=== PATIENT | female | born 1935 | race Caucasian/White ===

== ENCOUNTER 2017-06-18 09:49 | Day surgery (SDC) | payer MEDICARE, OTHER ==
[2017-06-18] VITALS (8 sets, daily range): BP systolic 109–138; BP diastolic 63–70
[~2017-06-18] VITALS: Ht 154.9 cm; Wt 63.5 kg
--- NOTE | 2017-06-18 07:21 | Pre-Procedure Note/Attestation ---
Pre-Procedure Note/Attestation Complete Prior to Procedure Planned Procedure: right - removal of cataract and placement of intraocular lens, right eye Procedure Narrative: Removal of cataract and placement of intraocular lens, right eye Indications for Procedure Pre-Operative Diagnosis: Cataract, nuclear, right eye Attestation I attest that I discussed the nature of the procedure; its benefits; risks and complications; and alternatives (and the risks and benefits of such alternatives ), prior to the procedure, with the patient (or the patient's legal dermatology sales representative). I attest that, if there was a reasonable possibility of needing a blood transfusion, the patient (or the patient's legal dermatology sales representative) was given the [place] Department of Health Services standardized written summary, pursuant to the José Miguel Sara Blood Safety Act ([place] Health and Safety Code # 1645, as amended). I attest that I re-evaluated the patient just prior to the surgery and that there has been no change in the patient's H&P, except as documented below: Praful Saucedo MD Jun 18, 2017 07:21
[2017-06-18] MEDS ORDERED: Akten 3.5% 1ml Btl ONE (10:01)
[2017-06-18] MEDS ORDERED: Cyclopentolate 1% Opth Sol ONE (10:01)
[2017-06-18] MEDS ORDERED: Phenylephrine 10% Opth Soln 5ml ONE (10:02)
[2017-06-18] MEDS ORDERED: Gatifloxacin Opth Solution 0.5% ONE (10:02)
[2017-06-18] MEDS ORDERED: Flurbiprofen 0.03% Opth Sol 2.5ml ONE (10:02)
[2017-06-18] MEDS: Phenylephrine 10% Opth Soln 5ml RIGHT EYE SCH ×3 (10:21→10:41)
[2017-06-18] MEDS: Flurbiprofen 0.03% Opth Sol 2.5ml RIGHT EYE SCH ×3 (10:21→10:42)
[2017-06-18] MEDS: Cyclopentolate 1% Opth Sol RIGHT EYE SCH ×3 (10:21→10:41)
[2017-06-18] MEDS: Akten 3.5% 1ml Btl RIGHT EYE SCH ×3 (10:21→10:42)
[2017-06-18] MEDS: Gatifloxacin Opth Solution 0.5% RIGHT EYE SCH ×3 (10:22→10:42)
[2017-06-18] MEDS ORDERED: CO Q-1030 MG PO (10:53)
[2017-06-18] MEDS ORDERED: OMEGA 3 1,0001 EACH PO (10:53)
[2017-06-18] MEDS ORDERED: VITAMIN D400 INTLU ORAL (10:53)
[2017-06-18] MEDS ORDERED: MULTIVITAMINS1 EAC2 ORAL (10:53)
[2017-06-18] MEDS ORDERED: CALCIUM CITRAT250 M1 PO (10:53)
[2017-06-18] MEDS ORDERED: Lidocaine 1% MPF 10mg/ml 5ml ONE (11:27)
[2017-06-18] MEDS ORDERED: BSS 500ml btl ONE (11:27)
[2017-06-18] MEDS ORDERED: Pred Forte 1% Opth Susp 1ml ONE (11:28)
[2017-06-18] MEDS ORDERED: Timolol 0.5% Op Soln 2.5ml ONE (11:28)
[2017-06-18] MEDS ORDERED: Dexamethasone 4mg/ml vial ONE (11:28)
[2017-06-18] MEDS ORDERED: Maxitrol Opth Oint 3.5gm ONE (11:28)
[2017-06-18] MEDS ORDERED: Tetracaine 0.5% Opth Soln ONE (11:28)
[2017-06-18] MEDS ORDERED: Lidocaine 2% MPF 5ml Vial INJ ONE (11:29)
[2017-06-18] MEDS ORDERED: Povidone-Iodine 5% opth solution ONE (11:29)
[2017-06-18] MEDS ORDERED: EPINEPHrine 1mg/1ml Amp ONE (11:29)
[2017-06-18] MEDS ORDERED: Bupivacaine 0.75% 30ml vial INJ ONE (11:30)
[2017-06-18] MEDS ORDERED: Acetylcholine Injection (OR) ONE (11:30)
[2017-06-18] MEDS ORDERED: Sodium Hyaluronate 10 mg/ml 0.85ml ONE (11:30)
[2017-06-18] MEDS ORDERED: BSS 15ml BTL ONE ×2 (11:30→12:35)
[2017-06-18] MEDS ORDERED: NS Irrig 1000ml ONE (12:45)
[2017-06-18] MEDS ORDERED: LR 1000ml ONE (12:45)
[2017-06-18] MEDS ORDERED: Midazolam 2mg/2ml Inj ONE (12:45)
[2017-06-18] MEDS ORDERED: fentaNYL 100 mcg/2 mL IV ONE (12:45)
[2017-06-18] MEDS ORDERED: Sterile Water Irrig 1000ml IRRIG ONE (12:45)
--- NOTE | 2017-06-18 13:15 | Anethesia Preoperative Eval ---
Anesthesia Pre-op PMH/ROS General Date of Evaluation: Jun 18, 2017 Time of Evaluation: 13:13 Anesthesiologist: sarina ASA Score: ASA 2 Mallampati Score Class I : Soft palate, uvula, fauces, pillars visible Class II: Soft palate, uvula, fauces visible Class III: Soft palate, base of uvula visible Class IV: Only hard plate visible Mallampati Classification: Class II Surgeon: tim Diagnosis: cataract Surgical Procedure: cataract extraction with IOL Anesthesia History: none Family History: no anesthesia problems Allergies: Coded Allergies: No Known Allergies (Unverified , 06/18/17) Medications: see eMAR Past Medical History Cardiovascular: Reports: other - mitral regur Pulmonary: Denies: COPD, MARY KATE, asthma, other Gastrointestinal/Genitourinary: Denies: CRI, ESRD, GERD, other Neurologic/Psychiatric: Denies: CVA, TIA, dementia, depression/anxiety, other Endocrine: Denies: DM, hypothyroidism, other, steroids HEENT: Reports: cataract (R) Hematology/Immune: Denies: DVT, anemia, bleeding disorder, other Musculoskeletal/Integumentary: Denies: DDD, DJD, OA, RA, edema, other Anesthesia Pre-op Phys. Exam Physician Exam Last Vital Signs Date Time Temp Pulse Resp B/P Pulse Ox O2 Delivery O2 Flow Rate FiO2 06/18/17 10:44 97.6 59 20 138/70 100 Room Air Constitutional: NAD Neurologic: CN 2-12 intact Cardiovascular: RRR Respiratory: CTA Gastrointestinal: S/NT/ND Airway Exam Mallampati Score: Class II MO: full ROM: full Dentures: no lower, no upper Anesthesia Pre-op A/P Studies Pre-op Studies: EKG - sr Risk Assessment & Plan Plan: mac Status Change Before Surgery: No Pre-Antibiotics Drug: none ALIZARILLIONUSAMA DISPLAY COORDINATOR Jun 18, 2017 13:15
--- NOTE | 2017-06-18 13:37 | Brief Operative Note ---
Immediate Post Operative Note Operative Note Pre-op Diagnosis: Cataract, nuclear, right eye Procedure: phaco pc iol, od Post-op Diagnosis: same as pre-op Surgeon: Redd Saucedo MD Engineer Design And Construction: none Anesthesiologist: Stephie Cain CRNA Anesthesia: local, MAC Specimen: none Complications: none Condition: stable Estimated Blood Loss: minimal Implant(s) used?: Yes - hartford zcb00 24.5 Praful Saucedo MD Jun 18, 2017 13:37
--- NOTE | 2017-06-18 13:42 | Immediate Post-Op Evaluation ---
Immediate Post-Op Evalulation Immediate Post-Op Evalulation Procedure: cataract extraction with IOL Date of Evaluation: Jun 18, 2017 Time of Evaluation: 13:41 IV Fluids: 300 Blood Pressure Systolic: 130 Blood Pressure Diastolic: 60 Pulse Rate: 61 Respiratory Rate: 14 O2 Sat by Pulse Oximetry: 100 Temperature (Fahrenheit): 98.3 Nausea: No Vomiting: No Complications none Patient Status: awake, reacts, patent Hydration Status: adequate Drug: none USAMA PASCUAL CRNA Jun 18, 2017 13:42
--- NOTE | 2017-06-18 13:46 | Discharge Instructions ---
Discharge Instructions Discharge Instructions Follow Up Orders Continue preop eye drops Leave shield on at all times except to place eye drops Followup tomorrow in Dr Saucedo's office Return to Work/School on: Jun 18, 2017 For Congestive Heart Failure Reminder Report to your physician any weight gain of 5 pounds or more in one week. Praful Saucedo MD Jun 18, 2017 13:45
--- NOTE | 2017-06-18 19:45 | Operative Note - Dictated ---
DATE OF OPERATION: 06/18/2017 SURGEON: Praful Saucedo M.D. TREASURY REPRESENTATIVE SURGEON: None. ANESTHESIOLOGIST: Stephie Cain CRNA. ANESTHESIA: Local/standby/monitored anesthesia care. PREOPERATIVE DIAGNOSIS: Cataract, senile, nuclear, right eye. POSTOPERATIVE DIAGNOSIS: Cataract, senile, nuclear, right eye. PROCEDURE: 1. Phacoemulsification of cataract, right eye. 2. Placement of posterior chamber intraocular lens, right eye (model ZCB00, power 24.5). SPECIMENS: None. COMPLICATIONS: None. INDICATIONS FOR SURGERY: The patient has had painless progressive decrease in visual acuity in the right eye secondary to a cataract. The patient understands risks of surgery including infection, bleeding, need for further surgery, loss of vision, no improvement of vision, loss of the eye, loss of life, glaucoma, retinal detachment, and understands these risks and elects to proceed with surgery. FINDINGS: The patient had a +3 nuclear sclerotic cataract. Operative Note: After informed consent was obtained, the patient was brought into the operating room and placed in supine position. Cardiac and respiratory monitors were attached. A time-out was performed and all criteria were met and everyone in the room agreed. The right eye was draped and prepped in sterile manner for ocular surgery. A lid speculum was placed in the eye. A 1% lidocaine preservative-free was injected at the 9 o'clock limbus. A conjunctiva peritomy from approximately 9 o'clock to 10 o'clock was made and dissected posteriorly. Hemostasis was maintained with bipolar cautery. A 2.6 mm limbal incision was made centered approximately 9:30 and dissected anteriorly. A paracentesis was made at approximately 12:30 and Shugarcaine was injected into the anterior chamber followed by Healon. The anterior chamber was then entered using a 2.6 mm keratome through the limbal incision and an anterior capsulorrhexis was then performed. Hydrodissection and hydrodelineation of the lens were then performed. The lens was then phacoemulsified using divide and conquer four-quadrant technique. Residual cortical material was then aspirated. The lens was taken from its package, placed into the cartridge and Healon was injected into the anterior chamber capsular bag. The tip of the cartridge was then brought up to the limbus and the lens was then injected into the capsular bag and centered nicely with a Sinskey hook. Healon was aspirated from the anterior chamber and capsular bag. One 10-0 nylon interrupted suture was then placed through the limbal incision and the knot was rotated and buried. Care was taken during the entire procedure not to touch the endothelium. The wound was checked and found to be watertight. The paracentesis wound was hydrated and closed. The conjunctiva was then closed with forceps cautery. The lid speculum and drapes were removed from the eye and drops of Pred Forte, Timoptic 0.5% and gatifloxacin were applied to the eye followed by Maxitrol ointment and a shield. The patient tolerated the procedure Well and left the operating room in awake, alert and in stable condition. Note, a time-out was performed prior to initiating the procedure and all criteria were met and everyone in the room agreed. Praful Saucedo M.D. DR: MALLORY JOB#: [id number] CC:
[2017-06-19 11:17] VITALS: BP 134/75
--- NOTE | 2017-06-19 11:17 | 48 Hour Post Anesthesia Eval ---
Post Anesthesia Evaluation Procedure: cataract extraction with IOL Date of Evaluation: Jun 19, 2017 Time of Evaluation: 11:16 Blood Pressure Systolic: 134 0: 75 Pulse Rate: 55 Respiratory Rate: 14 O2 Sat by Pulse Oximetry: 100 Airway: patent Nausea: No Vomiting: No Hydration Status: adequate Cardiopulmonary Status: stable Mental Status/LOC: patient returned to baseline Post-Anesthesia Complications: none Follow-up care needed: N/A USAMA PASCUAL CRNA Jun 19, 2017 11:17
== END 2017-06-18 14:50 | disposition home or self-care (01) ==
LOC: SUR 09:49
DX: H25.11 Age-related nuclear cataract, right eye (principal); I34.0 Nonrheumatic mitral (valve) insufficiency; I35.1 Nonrheumatic aortic (valve) insufficiency; E04.2 Nontoxic multinodular goiter; G58.8 Other specified mononeuropathies; M54.30 Sciatica, unspecified side; Q44.6 Cystic disease of liver; J84.89 Other specified interstitial pulmonary diseases; Z87.891 Personal history of nicotine dependence; Z90.49 Acquired absence of other specified parts of digestive tract
CPT/HCPCS: 66984; J0171; J1100; J2250; J3010; J3490; J7120; V2632; 94003; 94150

== ENCOUNTER 2017-08-13 10:05 | Day surgery (SDC) | payer MEDICARE, OTHER ==
[~2017-08-13] VITALS: Ht 154.9 cm; Wt 63.0 kg
[2017-08-13] VITALS (8 sets, daily range): BP systolic 102–132; BP diastolic 56–76
--- NOTE | 2017-08-13 09:55 | Pre-Procedure Note/Attestation ---
Pre-Procedure Note/Attestation Complete Prior to Procedure Planned Procedure: left - Removal of cataract and placement of intraocular lens , left eye Procedure Narrative: removal of cataract and placement of intraocular lens, left eye Indications for Procedure Pre-Operative Diagnosis: Cataract, nuclear, cortical, left eye Attestation I attest that I discussed the nature of the procedure; its benefits; risks and complications; and alternatives (and the risks and benefits of such alternatives ), prior to the procedure, with the patient (or the patient's legal digital media representative). I attest that, if there was a reasonable possibility of needing a blood transfusion, the patient (or the patient's legal digital media representative) was given the [place] Department of [employer] Services standardized written summary, pursuant to the José Miguel Sara Blood Safety Act ([place] Health and Safety Code # 1645, as amended). I attest that I re-evaluated the patient just prior to the surgery and that there has been no change in the patient's H&P, except as documented below: Praful Saucedo MD Aug 13, 2017 09:55
[~2017-08-13 10:05] MED LIST: CALCIUM CITRAT250 M1 PO; CO Q-1030 MG PO; MULTIVITAMINS1 EAC2 ORAL; OMEGA 3 1,0001 EACH PO; Pred Forte 1% Opth Susp 1ml LEFT EYE ONE; VITAMIN D400 INTLU ORAL
[2017-08-13] MEDS ORDERED: Pred Forte 1% Opth Susp 1ml ONE (10:41)
[2017-08-13] MEDS ORDERED: Phenylephrine 10% Opth Soln 5ml ONE (10:41)
[2017-08-13] MEDS ORDERED: Flurbiprofen 0.03% Opth Sol 2.5ml ONE (10:41)
[2017-08-13] MEDS ORDERED: Cyclopentolate 1% Opth Sol ONE (10:41)
[2017-08-13] MEDS ORDERED: Akten 3.5% 1ml Btl ONE (10:42)
[2017-08-13] MEDS: Phenylephrine 10% Opth Soln 5ml LEFT EYE SCH ×3 (10:45→11:11)
[2017-08-13] MEDS: Flurbiprofen 0.03% Opth Sol 2.5ml LEFT EYE SCH ×3 (10:45→11:11)
[2017-08-13] MEDS ORDERED: Fluorescein Strips ONE (10:45)
[2017-08-13] MEDS: Cyclopentolate 1% Opth Sol LEFT EYE SCH ×3 (10:45→11:11)
[2017-08-13] MEDS: Akten 3.5% 1ml Btl LEFT EYE SCH ×3 (10:45→11:11)
[2017-08-13] MEDS ORDERED: Lidocaine 1% MPF 10mg/ml 5ml ONE (10:45)
[2017-08-13] MEDS ORDERED: BSS 500ml btl ONE (10:45)
[2017-08-13] MEDS ORDERED: Lidocaine 4% Amp ONE (10:46)
[2017-08-13] MEDS ORDERED: Dexamethasone 4mg/ml vial ONE (10:46)
[2017-08-13] MEDS ORDERED: Tetracaine 0.5% Opth Soln ONE (10:46)
[2017-08-13] MEDS ORDERED: Povidone-Iodine 5% opth solution ONE (10:46)
[2017-08-13] MEDS ORDERED: Ciprofloxacin Opth Soln ONE (10:46)
[2017-08-13] MEDS ORDERED: Maxitrol Opth Oint 3.5gm ONE (10:46)
[2017-08-13] MEDS ORDERED: Carbachol 0.01% Op Soln 1.5ml vial ONE (10:47)
[2017-08-13] MEDS ORDERED: EPINEPHrine 1mg/1ml Amp ONE (10:47)
[2017-08-13] MEDS ORDERED: BSS 15ml BTL ONE (10:47)
[2017-08-13] MEDS ORDERED: Sodium Hyaluronate 10 mg/ml 0.85ml ONE ×2 (10:47→13:35)
[2017-08-13] MEDS ORDERED: NS Irrig 1000ml ONE (11:45)
[2017-08-13] MEDS ORDERED: Propofol 200mg/20ml IV ONE (11:45)
[2017-08-13] MEDS ORDERED: LR 1000ml ONE (11:45)
[2017-08-13] MEDS ORDERED: Midazolam 2mg/2ml Inj ONE (11:45)
[2017-08-13] MEDS ORDERED: Sterile Water Irrig 1000ml IRRIG ONE (11:45)
[2017-08-13] MEDS ORDERED: fentaNYL 100 mcg/2 mL IV ONE (11:45)
--- NOTE | 2017-08-13 12:09 | Immediate Post-Op Evaluation ---
Immediate Post-Op Evalulation Immediate Post-Op Evalulation Date of Evaluation: Aug 13, 2017 Time of Evaluation: 13:29 IV Fluids: 450 Blood Products: 0 Estimated Blood Loss: 0 Urinary Output: 0 Blood Pressure Systolic: 132 Blood Pressure Diastolic: 72 Pulse Rate: 64 Respiratory Rate: 18 O2 Sat by Pulse Oximetry: 99 Temperature (Fahrenheit): 97.8 Pain Score (1-10): 0 Nausea: No Vomiting: No Patient Status: awake, patent Hydration Status: adequate Given Within 1 Hr of Incision: No Khushboo Goodman CRNA Aug 13, 2017 12:09
--- NOTE | 2017-08-13 12:09 | Anethesia Preoperative Eval ---
Anesthesia Pre-op PMH/ROS General Date of Evaluation: Aug 13, 2017 Time of Evaluation: 11:45 - S Anesthesiologist: Rex ASA Score: ASA 3 Mallampati Score Class I : Soft palate, uvula, fauces, pillars visible Class II: Soft palate, uvula, fauces visible Class III: Soft palate, base of uvula visible Class IV: Only hard plate visible Mallampati Classification: Class I Surgeon: Sheryl Diagnosis: left eye cataract Anesthesia History: none Family History: no anesthesia problems Allergies: Coded Allergies: No Known Allergies (Unverified , 06/18/17) Medications: see eMAR Past Medical History Cardiovascular: 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 Exam Physician Exam Last Vital Signs Date Time Temp Pulse Resp B/P (MAP) Pulse Ox O2 Delivery O2 Flow Rate FiO2 08/13/17 10:49 97.7 59 18 132/76 98 Room Air Constitutional: NAD Neurologic: CN 2-12 intact Cardiovascular: RRR Respiratory: CTA Gastrointestinal: S/NT/ND Airway Exam Mallampati Score: Class I MO: full ROM: full Teeth: missing - left lower tooth Dentures: no upper, no lower Anesthesia Pre-op A/P Labs reviewed Studies Pre-op Studies: EKG - NSR Risk Assessment & Plan Plan: MAC if patient cannot tolerate switch to general Pre-Antibiotics Given Within 1 Hr of Incision: Khushboo Aguilar CRNA Aug 13, 2017 12:09
--- NOTE | 2017-08-13 12:10 | 48 Hour Post Anesthesia Eval ---
Post Anesthesia Evaluation Date of Evaluation: Aug 13, 2017 Time of Evaluation: 13:37 Blood Pressure Systolic: 132 0: 72 Pulse Rate: 64 Respiratory Rate: 18 Temperature (Fahrenheit): 97.8 O2 Sat by Pulse Oximetry: 100 Airway: patent Nausea: No Vomiting: No Pain Intensity: 0 Hydration Status: adequate Mental Status/LOC: patient returned to baseline Follow-up Care/Observations: Right hand swelling went down from the infiltrated IV. Pt doing much better. Follow-up care needed: patient intructions given Khushboo Goodman CRNA Aug 13, 2017 12:10
[2017-08-13] MEDS ORDERED: Lidocaine 2% MPF 5ml Vial INJ ONE (12:43)
[2017-08-13] MEDS ORDERED: Bupivacaine 0.75% 30ml vial INJ ONE (12:43)
[2017-08-13] MEDS ORDERED: fentaNYL 100 mcg/2 mL IV PRN (13:45)
--- NOTE | 2017-08-13 13:45 | Brief Operative Note ---
Immediate Post Operative Note Operative Note Pre-op Diagnosis: Cataract, nuclear, cortical, left eye Procedure: phaco pc iol, os Post-op Diagnosis: same as pre-op Surgeon: Redd Saucedo MD Anesthesiologist: Lisa Goodman CRNA Anesthesia: local, MAC Specimen: none Complications: none Fluids: IV Estimated Blood Loss: minimal Implant(s) used?: Yes - doss zcb00 28.0 Praful Saucedo MD Aug 13, 2017 13:45
--- NOTE | 2017-08-13 13:48 | Discharge Instructions ---
Discharge Instructions Discharge Instructions Follow Up Orders Continue preop eye medications Wear shield at all times except to place eye drops Followup tomorrow in Dr Saucedo's office For Congestive Heart Failure Reminder Report to your physician any weight gain of 5 pounds or more in one week. Praful Saucedo MD Aug 13, 2017 13:48
--- NOTE | 2017-08-13 23:30 | Operative Note - Dictated ---
DATE OF OPERATION: 08/13/2017 SURGEON: Praful Saucedo M.D. PEDIATRIC GENETICIST SURGEON: None. ANESTHESIOLOGIST: Khushboo Goodman CRNA ANESTHESIA: Local/standby/monitored anesthesia care. PREOPERATIVE DIAGNOSIS: Cataract, nuclear, cortical, left eye. POSTOPERATIVE DIAGNOSIS: Cataract, nuclear, cortical, left eye. PROCEDURES: 1. Phacoemulsification of cataract, left eye. 2. Placement of posterior chamber intraocular lens, left eye (model ZCB00, 28.0 diopters). COMPLICATIONS: None. SPECIMENS: None. Indications For Surgery: The patient has had the painless progressive decrease in visual acuity in the left eye secondary to cataract. The patient understands the risks of surgery including infection, bleeding, need for further surgery, loss of vision, no improvement in vision, loss of the eye, loss of life, glaucoma, retinal detachment, understands these risks and elects to proceed with surgery. Findings: The patient had a +3 nuclear sclerotic cataract as well as a +1 cortical cataract. Operative Note: After informed consent was obtained, the patient was brought into the operating room and placed in the supine position. Cardiac and respiratory monitors were attached. A time-out was performed and all criteria were met and everyone in the room agreed. The left eye was then draped and prepped in a sterile manner for ocular surgery. The patient kept moving and moving her eye up and down and I could not control it even when grasping onto it with a 0.12 forceps. I then took a silk 6-[address] at the superior rectus muscle for a stay suture. The patient continued to move and I was able to inject 1% lidocaine preservative-free at the approximate 2 o'clock limbal area and did a conjunctiva peritomy. Hemostasis was maintained with bipolar cautery. I was able to then make a 2.6 mm limbal incision centered at approximately 2 o'clock and dissected anteriorly. At this point, the patient was fighting with me by not moving her eyes when I was telling to her and even when I tried to grasp the globe with 0.12 forceps, she would not let me move the eye. I then asked to give a peribulbar block and asked for more anesthesia, but the intravenous came out and then, I removed the lid speculum from the eye and they placed the new intravenous in the left hand. Anesthesia was obtained and I did give a peribulbar block after placing the lid speculum into the eye. I did a conjunctival cut down at the peripheral 8 o'clock inferior temporal quadrant. After cautery was applied and cut down to the sclerae and then with a peribulbar cannula, gave approximately 4 to 5 mL of a 50:50 mix of 0.75% Marcaine and 1% lidocaine. Anesthesia of the globe was then obtained. I then made a paracentesis at approximately 5:30 and 1% lidocaine preservative-free was injected into the anterior chamber followed by Healon. The anterior chamber was then entered using a 2.6 mm keratome through the limbal incision. An anterior capsulorrhexis was then performed. Hydrodissection and hydrodelineation of the lens was then performed. The lens was then phacoemulsified using divide and conquer four-quadrant technique. Residual cortical material was then aspirated. Healon was injected into the anterior chamber and capsular bag. The lens was taken from its package, placed into the cartridge, and the tip of the cartridge was placed through the limbal incision and the lens was injected into the capsular bag and centered nicely with a Sinskey hook. Healon was aspirated from the anterior chamber and capsular bag. One 10-0 nylon interrupted suture was then placed through the limbal incision and the knot was rotated and buried. Care was taken during the entire procedure not to touch the endothelium. The wound was checked and found to be watertight. The paracentesis wound and limbal wound were also hydrated and closed. The conjunctiva was then closed with forceps cautery. The conjunctiva wound from the peribulbar injection was also closed with forceps cautery. The lens was inspected and both the optic and both haptics were in the capsular bag and it was centered in the 3 o'clock to 9 o'clock meridian. The lid speculum and drapes were removed from the eye and drops of Pred Forte and ciprofloxacin were applied to the eye followed by Maxitrol ointment and a shield. The patient tolerated the procedure well and left the operating room awake and alert in stable condition and is to follow up the next day, but sooner on a p.r.n. basis. Praful Saucedo M.D. DR: DONTA JOB#: [id number] CC:
== END 2017-08-13 14:45 | disposition home or self-care (01) ==
LOC: SUR 10:05
DX: H25.12 Age-related nuclear cataract, left eye (principal); I10 Essential (primary) hypertension; M54.30 Sciatica, unspecified side; I34.0 Nonrheumatic mitral (valve) insufficiency; R42 Dizziness and giddiness; R00.2 Palpitations; G58.8 Other specified mononeuropathies; Q44.6 Cystic disease of liver; I35.1 Nonrheumatic aortic (valve) insufficiency; J84.89 Other specified interstitial pulmonary diseases; E04.1 Nontoxic single thyroid nodule; Z87.891 Personal history of nicotine dependence; Z90.89 Acquired absence of other organs; Z81.8 Family history of other mental and behavioral disorders; Z80.0 Family history of malignant neoplasm of digestive organs
CPT/HCPCS: 66984; J0171; J1100; J2250; J2704; J3010; J3490; J7120; V2632; 94003; 94150